=== PATIENT | female | born 1960 | race Caucasian/White ===

== ENCOUNTER → 2017-11-18 | Outpatient (CLI) | payer BC ==
[2017-11-18 11:57] VITALS: BP 116/77; PULSE 68; TEMP 97.6; BMI 23.1
--- NOTE | 2017-11-18 12:44 | P.GSHP ---
History of Present Illness H&P Date: 11/18/17 Patient without any complaints about her breast. She occasionally has pain under her right breast. No nipple discharge. No masses in her brest. she has dense breast. Past surgical history: 1. thyroid total 2. hysterectomy endometriosis 3. 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 right breast biopsy 5. bladder suspension/rectocoel 6. removal of [place] sling 7.placement of monarch sling past medical history: 1. hypothyroid 2. type two diabetes 3. GERD 4. IBS social history; smoke: none alcohol: monthly drugs: none ROS: HEENT: neative heart: negative lung: negative muskulskeletal: none psych: anxiety no depression : bladder suspension - Constitutional Constitutional: Denies chills, Denies fever - EENT Eyes: denies blurred vision, denies pain Ears: deny: decreased hearing, ear discharge, earache, tinnitus Ears, nose, mouth and throat: Denies headache, Denies sore throat - Breasts Breasts: bilateral: as per HPI - Cardiovascular Cardiovascular: Denies chest pain, Denies shortness of breath - Respiratory Respiratory: Denies cough, Denies 7 - Gastrointestinal Comment: IBS GERD - Genitourinary (Female) Comment: surgery for urinary incontinence - Musculoskeletal Musculoskeletal: Denies myalgias - Integumentary Integumentary: Reports as per HPI - Neurological Neurological: Reports as per HPI - Psychiatric Psychiatric: Denies anxiety, Denies depression - Endocrine Comment: total thyroid resection - Hematologic/Lymphatic Comment: no blood thinners, no bleeding abnormalities - Allergic/Immunologic Allergic/Immunologic: Reports seasonal allergies Past Medical History Past Medical History: Diabetes Mellitus, GERD/Reflux, Thyroid Disorder Additional Past Medical History / Comment(s): IBS History of Any Multi-Drug Resistant Organisms: None Reported Past Surgical History: Bladder Surgery, Hysterectomy Additional Past Surgical History / Comment(s): Colonoscopy, Rectocele 2014 Past Anesthesia/Blood Transfusion Reactions: Motion Sickness, Postoperative Nausea & Vomiting (PONV) Additional Past Anesthesia/Blood Transfusion Reaction / Comment(s): Anxiety Smoking Status: Former smoker Past Alcohol Use History: Occasional Past Drug Use History: None Reported - Past Family History Father Family Medical History: Deep Vein Thrombosis (DVT) Sister(s) Family Medical History: Deep Vein Thrombosis (DVT) Medications and Allergies Home Medications Medication Instructions Recorded Confirmed Type Aspirin [Adult Low Dose Aspirin EC] 81 mg PO DAILY 12/11/15 12/17/15 History Cholecalciferol [Vitamin D3] 1,000 unit PO DAILY 12/11/15 12/17/15 History Esomeprazole Magnesium [NexIUM] 20 mg PO DAILY 12/11/15 12/17/15 History Levothyroxine Sodium [Synthroid] 175 mcg PO DAILY 12/11/15 12/17/15 History Linaclotide [Linzess] 145 mcg PO DAILY 12/11/15 12/17/15 History Loratadine [Claritin] 10 mg PO DAILY 12/11/15 12/17/15 History Metoclopramide [Reglan] 10 mg PO DAILY 12/11/15 12/17/15 History Amherst-3 Fatty Acids [Amherst-3] 1,000 mg PO DAILY 12/11/15 12/17/15 History Pravastatin Sodium [Pravachol] 40 mg PO DAILY 12/11/15 12/17/15 History sitaGLIPtin [Januvia] 100 mg PO DAILY 12/11/15 12/17/15 History Allergies Allergy/AdvReac Type Severity Reaction Status Date / Time No Known Allergies Allergy Verified 12/17/15 07:55 Surgical - Exam Vital Signs Temp Pulse BP 97.6 F 68 116/77 11/18/17 11:46 11/18/17 11:46 11/18/17 11:46 - Eyes normal ocular movement, no icteric - ENT no hearing loss, no congestion - Neck no masses, trachea midline - Respiratory normal respiratory effort, clear to auscultation - Cardiovascular Heart Sounds: normal: S1, S2 - Abdomen Abdomen: soft, non tender, no guarding, no rigid, no rebound - Integumentary Examination of the entire integument was performed including the head and neck upper and lower extremities torso but generally her hands and feet patient has multiple nevi but none of which are suspicious at this time - Neurologic no disoriented, no combative - Musculoskeletal normal gait, normal posture - Psychiatric oriented to time, oriented to person, oriented to place, speech is normal, memory intact right breast: smaller than left breast dense breast tissue scars from prior biopsies no masses of concern left breast: no masses of concern dense breast bilateral axilla: no adenopathy of concern Assessment and Plan Assessment: impression: 1. fibrocystic breast 2. melanoma insitu by history 3. s/p bladder suspension 4. diabetes 5. hypothyroid Plan: 1. bilateral mammogram further recommendation to follow 2. medical management of medical conditions 3. follow up in 6 months for breast exam if mammogram is OK
--- NOTE | 2017-11-18 14:27 | MM ---
Reason for exam: additional evaluation requested from prior study. Last mammogram was performed 13 years and 2 months ago. History: Benign excisional biopsy of the right breast, September 15, 2006. Physical Findings: Nurse did not find any significant physical abnormalities on exam. MG 3D Diag Mammo W/Cad [facility] Bilateral CC and MLO view(s) were taken. Prior study comparison: October 29, 2016, mammogram, performed at [facility]. October 18, 2015, mammogram, performed at [facility]. The breast tissue is heterogeneously dense. This may lower the sensitivity of mammography. No suspicious abnormality. Post biopsy change right upper outer quadrant. These results were verbally communicated with the patient and result sheet given to the patient on 11/18/17. ASSESSMENT: Benign, BI-RAD 2 RECOMMENDATION: Routine screening mammogram of both breasts in 1 year.
== END | disposition home or self-care (01) ==
LOC: WWCWWP 11:25
PROVIDERS: ATTEND Surgery
DX: N60.09 Solitary cyst of unspecified breast (principal)
CPT/HCPCS: 77062; 77066

== ENCOUNTER → 2018-05-04 | Outpatient (CLI) | payer BC ==
--- NOTE | 2018-05-04 07:23 | MR ---
EXAMINATION TYPE: MR knee RT wo con DATE OF EXAM: 05/04/2018 COMPARISON: NONE HISTORY: Right knee pain and locking sensation for 4 to 6 months TECHNIQUE: Multiplanar, multisequence images of the knee is performed without IV contrast. FINDINGS: MEDIAL MENISCUS: Anterior horn is intact without tear. Posterior horn shows oblique increased signal extending to inferior articular surface sagittal image 7. LATERAL MENISCUS: Anterior and posterior horns are intact without tear. CRUCIATE LIGAMENTS: The anterior and posterior cruciate ligaments are intact and unremarkable. COLLATERAL LIGAMENTS: The medial collateral ligament and lateral collateral ligament complex are inta ct and unremarkable. EXTENSOR MECHANISM: Visualized quadriceps and patellar tendons are intact. EFFUSION: No significant suprapatellar joint effusion. POPLITEAL CYST: Tiny popliteal/jung cyst axial image 8. TRICOMPARTMENT SPACES: There is mild to moderate tricompartment joint space loss. No significant spur ring is seen. CARTILAGE: Some contemplation patella is present with fissuring of articular cartilage along superior aspect of the posterior patellar pole. BONE MARROW SIGNAL: There is no primary osseous lesion seen best coronal image 4 oval in shape with h eterogeneous diminished T1 and increased T2 signal measuring 12 x 9 mm with some vague area of T2 hyp erintensity surrounding lesion would still favor enchondroma or other benign etiology. Correlation wi th plain films and clinical correlation with pain at this level is advised. OTHER: No additional significant abnormality is appreciated. IMPRESSION: 1. Oblique full-thickness tear posterior horn of medial meniscus. 2. Mild to borderline moderate tricompartment degenerative changes as detailed above. 3. A 1.2 cm superior posterior patellar osseous lesion as detailed above.
== END | disposition home or self-care (01) ==
LOC: RADMRIMAIN 06:12
PROVIDERS: ATTEND Family Medicine
DX: S83.241A Other tear of medial meniscus, current injury, right knee, initial encounter (principal); M17.11 Unilateral primary osteoarthritis, right knee; M89.9 Disorder of bone, unspecified

== ENCOUNTER → 2018-05-12 | Outpatient (CLI) | payer BC ==
[2018-05-12 10:46] VITALS: BP 109/61; PULSE 78; RESP 18; TEMP 97.7; BMI 23.8
--- NOTE | 2018-05-12 11:14 | P.PN ---
Subjective Progress Note Date: 05/12/18 Principal diagnosis: The patient is a 57-year-old white female who presents for breast examination. She has bilateral discomfort in her breast which is not anything different than what is been in the past. She has some slight sensation of fullness in the upper quadrant of the right breast with no discrete dominant masses or nodules of concern. The patient's last bilateral mammogram was performed 94154 and this revealed no specific lesions of concern it was a benign BIRADS 2 and repeat. Bilateral mammogram in 1 year was recommended. The patient drinks approximately 2 cups of coffee per day. Patient does not drink pop. The patient does not smoke nor is she exposed to secondhand smoke. She eats minimal amounts of chocolate. Family history: 1.none Hormonal History: menarche: 14 : 1, first at 27, breast fed: none menopause: 52 BCP: 6 months hormones: none Past surgical history: 1. Total thyroidectomy 2. Hysterectomy for endometriosis 3. Multiple skin lesions removed for atypia, melanoma in situ, and 2 basal cell cancers, 4. Right breast biopsy 6. Bladder suspension/rectocele repair 7. Removal of [place] sling Past medical history: 1. Hypothyroid 2. Type 2 diabetes 3. GERD 4. Irritable bowel syndrome Social History: smoke; none alcohol: monthly drugs: none Objective - Vital Signs Vital signs: Vital Signs Temp 97.7 F 05/12/18 10:42 Pulse 78 05/12/18 10:42 Resp 18 05/12/18 10:42 BP 109/61 05/12/18 10:42 Pulse Ox Intake & Output 05/11/18 05/12/18 05/12/18 18:59 06:59 18:59 Weight 68.946 kg - Constitutional General appearance: Present: average body habitus - EENT Eyes: Present: EOMI ENT: Present: hearing grossly normal - Neck Details: status post total thyroid resection Neck: Present: normal ROM - Respiratory Respiratory: bilateral: CTA - Cardiovascular Rhythm: regular Heart sounds: normal: S1, S2 - Gastrointestinal General gastrointestinal: Present: soft - Integumentary Integumentary Comment(s): skin: Examination of the entire integument including the head and neck, torso, extremities, buttock genital areas and the hands and feet do not reveal any lesions of concern for which resection is recommended she does have multiple scars from prior skin lesions have been removed these are well-healed - Musculoskeletal Musculoskeletal: Present: gait normal - Psychiatric Psychiatric: Present: A&O x's 3, appropriate affect, intact judgment & insight - Additional findings Additional findings: Breast examination: Right breast: Well-healed scar from prior biopsies, mild increased density upper outer quadrant area, believed to be fibrocystic breast changes and related to scar from prior biopsies, no dominant masses or nodules of concern a multi-positional exam Right axilla: No adenopathy of concern Left breast: Multiple positional exam noted on a mass or nodules of concern Left axilla: No adenopathy of concern Assessment and Plan Assessment: Impression: 1. Fibrocystic breast changes 2. Prior history of skin lesions of concern including melanoma in situ, and basal cell carcinomas 3. GERD 4. Type 2 diabetes 5. Irritable bowel syndrome 6. Hypothyroidism Plan: 1. Repeat bilateral breast exam and mammogram in 6 months time 2. Patient will let us know if she sees any skin lesions which have changed 3. Medical management of medical conditions Cc: Dr. Murphy
== END ==
LOC: WWCWWP 09:58
PROVIDERS: ATTEND Surgery
DX: Z53.9 Procedure and treatment not carried out, unspecified reason (principal)

== ENCOUNTER → 2018-10-27 | Outpatient (CLI) | payer BC ==
--- NOTE | 2018-10-27 10:28 | US ---
EXAMINATION TYPE: US abdomen complete DATE OF EXAM: 10/27/2018 COMPARISON: NONE CLINICAL HISTORY: 58-year-old female R10.9 Abdominal pain. TECHNIQUE: Multiple sonographic images of the abdomen are obtained. FINDINGS: EXAM MEASUREMENTS: Liver Length: 13.1 cm Gallbladder Wall: 0.2 cm CBD: 0.21 cm Spleen: 10.8 cm Right Kidney: 11.6 x 4.1 x 5.3 cm Left Kidney: 11.6 x 3.8 x 4.9 cm Pancreas: wnl Liver: wnl Gallbladder: wnl Evidence for sonographic Weathers's sign: No CBD: wnl Spleen: wnl Right Kidney: wnl Left Kidney: wnl Upper IVC: wnl Abd Aorta: bifurcation obscured by bowel gas, otherwise wnl IMPRESSION: Unremarkable sonographic examination of the abdomen.
== END | disposition home or self-care (01) ==
LOC: RADUSWWP 07:13
PROVIDERS: ATTEND Family Medicine
DX: R10.9 Unspecified abdominal pain (principal)
CPT/HCPCS: 76700

== ENCOUNTER → 2018-11-21 | Outpatient (CLI) | payer BC ==
--- NOTE | 2018-11-23 09:27 | MM ---
Reason for exam: screening (asymptomatic). Last mammogram was performed 1 year ago. History: Patient has history of other cancer at age 56. Benign excisional biopsy of the right breast, September 15, 2006. Physical Findings: A clinical breast exam by your physician is recommended on an annual basis and results should be correlated with mammographic findings. MG 3D Screening Mammo W/Cad Bilateral CC and MLO view(s) were taken. Prior study comparison: November 18, 2017, bilateral MG 3d diag mammo w/cad [facility]. October 29, 2016, mammogram, performed at [facility]. The breast tissue is heterogeneously dense. This may lower the sensitivity of mammography. Finding #1: There is a 7 mm equal density (isodense) mass in the subareolar position of the right breast. Finding #2: There are typically benign calcifications in the left breast. ASSESSMENT: Incomplete: need additional imaging evaluation, BI-RAD 0 RECOMMENDATION: Special view mammogram and ultrasound of the right breast. [facility] will attempt to contact patient to return for ultrasound.
== END | disposition home or self-care (01) ==
LOC: RADMAMWWP 09:02
PROVIDERS: ATTEND Surgery
DX: Z12.31 Encounter for screening mammogram for malignant neoplasm of breast (principal)
CPT/HCPCS: 77063; 77067

== ENCOUNTER → 2018-11-25 | Outpatient (CLI) | payer BC ==
[2018-11-25 11:48] VITALS: BP 117/83; PULSE 66; RESP 18; TEMP 98.4; BMI 23.8
--- NOTE | 2018-11-25 12:17 | P.PN ---
Subjective Progress Note Date: 11/25/18 Principal diagnosis: fibrocystic breast Mohan is a 58-year-old white female who presents with a complaint of fullness in her breast. The right breast although smaller than the left feels full or and is more tender. Secondary to the denseness of the breast and heaviness of the breast she feels she must wear an underwire bra which cuts into the breast and causes more discomfort. She does not have any specific lumps or masses in her breast. She has had open biopsy of the right breast twice in the past. The patient had a recent mammogram performed at [facility]. This showed the breast to be heterogeneously dense. There was a 7 mm equal density mass in the subareolar position of the right breast. There are benign calcifications in the left breast. Secondary to the findings in the right breast was recommended she undergo a right breast diagnostic mammogram and ultrasound. The patient is complaining of some increased night sweats which may correlate with fluid retention and increased fullness in her breast. She does follow with a MANAGER FI[facility] physician at [facility], Dr. Sauer Family history: Paternal aunt: Breast cancer at 75 Maternal cousin: Breast cancer at 40 Hormonal History: menarche: 14 breast fed: no, first child born at 27 BCP: 1 year hormones: none Past medical history: 1. Hypothyroid 2. Type 2 diabetes 3. GERD 4. Irritable bowel syndrome Past surgical history: 1. Total thyroidectomy 2. Hysterectomy 3. 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 Right breast biopsy 5. Bladder suspension/rectocele. 6. Removal of [place] sling 7. Placement of monarch sling Social history: Smoke: Negative Alcohol: Occasional Drugs: Negative Review of systems: HEENT: Negative Lungs: Negative Cardiac: Negative GI: Irritable bowel syndrome : Prior bladder suspension Musculoskeletal: Arthritis in knees Integument: As above Psychiatric: Anxiety Objective - Constitutional General appearance: Present: average body habitus - EENT Eyes: Present: EOMI ENT: Present: hearing grossly normal - Neck Neck: Present: normal ROM - Respiratory Respiratory: bilateral: CTA - Cardiovascular Rhythm: regular Heart sounds: normal: S1, S2 - Gastrointestinal General gastrointestinal: Present: soft - Integumentary Integumentary Comment(s): Examination of the entire integument was performed: Ii would recommend the following be excised or followed very closely 1. 2 nevi of some variegated color on the left forearm 2. 2 nevi which I would recommend be excised in the right anterior thigh Integumentary: Present: normal turgor - Musculoskeletal Musculoskeletal: Present: gait normal - Psychiatric Psychiatric: Present: A&O x's 3, appropriate affect, intact judgment & insight - Additional findings Additional findings: Breast Exam: right breast: Multi-positional exam dense, flow breast, fibrocystic changes, no discrete lumps or masses of concern, well-healed scar from prior surgery Right axilla: No adenopathy of concern left breast: Multiple positional exam fibrocystic changes no dominant masses or nodules of concern Left axilla: No adenopathy of concern The patient is concerned that her breasts are very heavy, she is a 36C on the left however on the right is a 35 C Secondary to the heaviness of her breasts she has indentation in her shoulders from her bra, she is also experiencing back pain Assessment and Plan Assessment: Impression: 1. Abnormal mammogram right breast 2. Fibrocystic breast disease 3. Fluid retention resulting in the heavy breast/dense breast tissue 4. Family history of breast cancer 5. Hypothyroid 6. Irritable bowel syndrome 7. GERD 8. Type 2 diabetes 9. Skin lesions as noted physical examination Plan: 1. Right breast diagnostic mammogram and ultrasound 2. Follow-up after right breast diagnostic mammogram and ultrasound 3. Excision of skin lesions as per dermatology 4. Medical follow-up with medical conditions 5. Concern that the patient is having hot flashes and may be having some hormonal fluctuations, she is going to follow with MANAGER FIRE at [facility] CC: Dr. Ricks
== END | disposition home or self-care (01) ==
LOC: WWCWWP 11:38
PROVIDERS: ATTEND Surgery
DX: Z53.9 Procedure and treatment not carried out, unspecified reason (principal)

== ENCOUNTER → 2018-12-01 | Outpatient (CLI) | payer BC ==
--- NOTE | 2018-12-02 09:07 | USB ---
Reason for exam: additional evaluation requested from abnormal screening. History: Patient has history of other cancer at age 56. Benign excisional biopsy of the right breast, September 15, 2006. US Breast Workup Limited RT Right limited breast ultrasound including focal area of concern, retroareolar and axilla demonstrates no cystic or solid lesion seen. These results were verbally communicated with the patient and result sheet given to the patient on 12/01/18. ASSESSMENT: Negative, BI-RAD 1 RECOMMENDATION: Follow-up diagnostic mammogram of the right breast in 6 months.
--- NOTE | 2018-12-02 09:07 | MM ---
Reason for exam: additional evaluation requested from abnormal screening. Last mammogram was performed less than 1 month ago. History: Patient has history of other cancer at age 56. Benign excisional biopsy of the right breast, September 15, 2006. Physical Findings: Nurse did not find any significant physical abnormalities on exam. MG 3D Work Up W/Cad RT Spot compression CC, spot compression MLO, and LM view(s) were taken of the right breast. Prior study comparison: November 21, 2018, bilateral MG 3d screening mammo w/cad. The breast tissue is heterogeneously dense. This may lower the sensitivity of mammography. There is no discrete abnormality subareolar. These results were verbally communicated with the patient and result sheet given to the patient on 12/01/18. ASSESSMENT: Probably benign, BI-RAD 3 RECOMMENDATION: Follow-up diagnostic mammogram of the right breast in 6 months.
== END | disposition home or self-care (01) ==
LOC: RADMAMWWP 13:41
PROVIDERS: ATTEND Surgery
DX: R92.8 Other abnormal and inconclusive findings on diagnostic imaging of breast (principal)
CPT/HCPCS: 77061; 77065

== ENCOUNTER → 2018-12-06 | Outpatient (CLI) | payer BC ==
[2018-12-06 12:15] VITALS: BP 121/76; PULSE 61; RESP 20; TEMP 98.1; BMI 24.3
--- NOTE | 2018-12-06 12:21 | P.PN ---
Progress Note - Text Progress Note Date: 12/06/18 Mohan was seen today for results of her right breast diagnostic mammogram and ultrasound. These films were reviewed with the radiologist. No lesion was seen on ultrasound. No persistent lesion was seen radiographically and mammogram. I have discussed this with the patient. She is going to have repeat right breast mammogram in 6 months time with physician exam at that time. The patient does have concerns about having this and fullness in her breast and is requesting an appointment with plastic surgery regarding a possible reduction mammoplasty. We've given her Dr. Gorman's name and we'll schedule this for her. The patient will follow up in 6 months time. Impression: 1. Fibrocystic breast changes 2. Dense breast which are heavy. Plan: 1. Repeat right breast mammogram in 6 months with physician exam at that time 2. Appointment with plastic surgery
== END ==
LOC: WWCWWP 11:59
PROVIDERS: ATTEND Surgery
DX: Z53.9 Procedure and treatment not carried out, unspecified reason (principal)

== ENCOUNTER → 2019-06-05 | Outpatient (CLI) | payer BC ==
--- NOTE | 2019-06-05 14:29 | MM ---
Reason for exam: follow-up at short interval from prior study. Last mammogram was performed 6 months ago. History: Patient is postmenopausal and has history of other cancer at age 56. Family history of breast cancer in maternal cousin at age 40. Benign excisional biopsy of the right breast, September 15, 2006. Physical Findings: Nurse did not find any significant physical abnormalities on exam. MG 3D Diag Mammo W/Cad RT CC and MLO view(s) were taken of the right breast. Prior study comparison: December 01, 2018, right breast MG 3d work up w/cad RT. November 21, 2018, bilateral MG 3d screening mammo w/cad. There are scattered fibroglandular densities. These results were verbally communicated with the patient and result sheet given to the patient on 06/05/19. ASSESSMENT: Benign, BI-RAD 2 RECOMMENDATION: Return to routine screening mammogram schedule for both breasts.
== END | disposition home or self-care (01) ==
LOC: RADMAMWWP 13:03
PROVIDERS: ATTEND Surgery
DX: R92.8 Other abnormal and inconclusive findings on diagnostic imaging of breast (principal)
CPT/HCPCS: 77061; 77065

== ENCOUNTER → 2019-06-23 | Outpatient (CLI) | payer BC ==
[2019-06-23 13:59] VITALS: BP 135/82; PULSE 58; RESP 18; TEMP 97.9
--- NOTE | 2019-06-23 14:02 | P.PN ---
Subjective Progress Note Date: 06/23/19 Principal diagnosis: fibrocystic breast changes Mohan is a 59-year-old white female comes for repeat breast evaluation. She had a bilateral mammogram 11/21/2018 which revealed a 7 mm equal density mass in the subareolar position of the right breast. Additional studies of the right breast including an ultrasound was performed at that time this is felt to be negative the follow-up diagnostic mammogram of the right breast in 6 months time was recommended. The patient has had a follow-up diagnostic mammogram on . This was felt to be scattered fibroglandular densities. Benign BIRADS 2 and return to normal screening for both breast which will be in November 2019. The patient does not feel anything of concern in her breasts. She is not complaining of any nipple discharge or changes. She is not complaining of any pain in her breast. The patient is following with her security alarm technician for her skin lesions. Family history: Paternal aunt: Breast cancer at 75 Maternal cousin: Breast cancer at 40 Hormonal History: menarche: 14 breast fed: no, first child born at 27 BCP: 1 year hormones: none Past medical history: 1. Hypothyroid 2. Type 2 diabetes 3. GERD 4. Irritable bowel syndrome Past surgical history: 1. Total thyroidectomy 2. Hysterectomy 3. 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 Right breast biopsy 5. Bladder suspension/rectocele. 6. Removal of [place] sling 7. Placement of monarch sling Social history: Smoke: Negative Alcohol: Occasional Drugs: Negative Review of systems: HEENT: Negative Lungs: Negative Cardiac: Negative GI: Irritable bowel syndrome : Prior bladder suspension Musculoskeletal: Arthritis in knees Integument: As above Psychiatric: Anxiety Objective - Constitutional General appearance: Present: average body habitus - EENT Eyes: Present: EOMI ENT: Present: hearing grossly normal - Neck Neck: Present: normal ROM - Respiratory Respiratory: bilateral: CTA - Cardiovascular Rhythm: regular Heart sounds: normal: S1, S2 - Gastrointestinal General gastrointestinal: Present: normal bowel sounds, soft - Integumentary Integumentary: Present: normal turgor - Musculoskeletal Musculoskeletal: Present: gait normal - Psychiatric Psychiatric: Present: A&O x's 3, appropriate affect, intact judgment & insight - Additional findings Additional findings: breast exam: right breast: multipositional exam no dominate masses or nodules of concern, scars well healed right axilla: no adenopathy of concern left breast: multipositional exam no dominate masses or nodules of concern, left axilla: no adenopathy of concern Assessment and Plan Assessment: Impression: 1. bilateral fibrocystic disease 2. no masses in breast 3. right breast BIRAD 2, 12-2-19 Plan: 1. bilateral mammogram November 2018 2. follow up after mammogram 3. continue to follow with dermatology CC: DR. Ricks encounter 20 minutes, > 50% of time in planning and counselling Time with Patient: Less than 30
== END | disposition home or self-care (01) ==
LOC: WWCWWP 12:26
PROVIDERS: ATTEND Surgery
DX: Z53.9 Procedure and treatment not carried out, unspecified reason (principal)

== ENCOUNTER → 2020-01-02 | Outpatient (CLI) | payer BC ==
--- NOTE | 2020-01-03 09:58 | MM ---
Reason for exam: screening (asymptomatic). Last mammogram was performed 7 months ago. History: Patient is postmenopausal and has history of other cancer at age 56. Family history of breast cancer in maternal cousin at age 40. Benign excisional biopsy of the right breast, September 15, 2006. Physical Findings: A clinical breast exam by your physician is recommended on an annual basis and results should be correlated with mammographic findings. MG 3D Screening Mammo W/Cad Bilateral CC and MLO view(s) were taken. Prior study comparison: June 05, 2019, right breast MG 3d diag mammo w/cad RT. December 01, 2018, right breast MG 3d work up w/cad RT. There are scattered fibroglandular densities. There is no discrete abnormality. No significant changes when compared with prior studies. ASSESSMENT: Negative, BI-RAD 1 RECOMMENDATION: Routine screening mammogram of both breasts in 1 year.
== END | disposition home or self-care (01) ==
LOC: RADMAMWWP 08:03
PROVIDERS: ATTEND Surgery
DX: Z12.31 Encounter for screening mammogram for malignant neoplasm of breast (principal)
CPT/HCPCS: 77063; 77067

== ENCOUNTER → 2020-03-21 | Outpatient (CLI) | payer BC ==
[2020-03-21 09:53] VITALS: BP 119/69; PULSE 61; RESP 18; TEMP 98.7
--- NOTE | 2020-03-21 10:22 | P.PN ---
Subjective Progress Note Date: 03/21/20 Principal diagnosis: fibrocystic breast changes Mohan is a 59-year-old white female comes for repeat breast evaluation. She had a bilateral mammogram 11/21/2018 which revealed a 7 mm equal density mass in the subareolar position of the right breast. Additional studies of the right breast including an ultrasound was performed at that time this is felt to be negative the follow-up diagnostic mammogram of the right breast in 6 months time was recommended. The patient has had a follow-up diagnostic mammogram on . This was felt to be scattered fibroglandular densities. Benign BIRADS 2 and return to normal screening for both breast which will be in November 2019. Her last mammogram was done on 01-02-20 and was benign BIRADS 1. The patient does not feel anything of concern in her breasts. She is not complaining of any nipple discharge or changes. She is not complaining of any pain in her breast. The patient is following with her engineering operator for her skin lesions. Family history: Paternal aunt: Breast cancer at 75 Maternal cousin: Breast cancer at 40 Hormonal History: menarche: 14 breast fed: no, first child born at 27 BCP: 1 year hormones: none Past medical history: 1. Hypothyroid 2. Type 2 diabetes 3. GERD 4. Irritable bowel syndrome Past surgical history: 1. Total thyroidectomy 2. Hysterectomy 3. 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 Right breast biopsy 5. Bladder suspension/rectocele. 6. Removal of Monarc sling 7. Placement of monarch sling Social history: Smoke: Negative Alcohol: Occasional Drugs: Negative Review of systems: HEENT: Negative Lungs: Negative Cardiac: Negative GI: Irritable bowel syndrome : Prior bladder suspension Musculoskeletal: Arthritis in knees Integument: As above Psychiatric: Anxiety hematologic: allergies: codeine Objective - Vital Signs Vital signs: Vital Signs Temp 98.7 F 03/21/20 09:50 Pulse 61 03/21/20 09:50 Resp 18 03/21/20 09:50 BP 119/69 03/21/20 09:50 Pulse Ox 99 03/21/20 09:50 Intake & Output 03/20/20 03/21/20 03/21/20 18:59 06:59 18:59 Weight 71.668 kg - Exam BMI 24.7 - Constitutional General appearance: Present: average body habitus - EENT Eyes: Present: EOMI ENT: Present: hearing grossly normal - Neck Neck: Present: normal ROM - Respiratory Respiratory: bilateral: CTA - Cardiovascular Rhythm: regular Heart sounds: normal: S1, S2 - Gastrointestinal General gastrointestinal: Present: normal bowel sounds, soft - Integumentary Integumentary: Present: normal turgor - Musculoskeletal Musculoskeletal: Present: gait normal - Psychiatric Psychiatric: Present: A&O x's 3, appropriate affect, intact judgment & insight - Additional findings Additional findings: Breast Exam: BRA: left breast 36C, right breast asymmetric smaller Inspection: Right breast grade 1 ptosis, left breast grade 2/3 ptosis Palpation: Right breast scars from prior surgery, fibrocystic changes, no dominant masses or nodules of concern Right axilla: No adenopathy of concern Left breast: Multi-positional exam no dominant masses or nodules of concern, fibrocystic changes Left axilla: No adenopathy of concern Complaining of shoulder notching secondary to heaviness of left breast she also complains of back pain Bilateral mammogram reviewed/95903 negative BIRADS 1 Assessment and Plan Assessment: Impression: 1. Asymmetry of breast/right breast smaller than left breast making it difficult to obtain close that fit well, shoulder notching, back pain 2. Fibrocystic breast changes 3. Hypothyroidism 4. Type 2 diabetes 5. GERD 6. Irritable bowel syndrome Plan: 1. Bilateral mammogram in 1 year 2. Appointment with plastic surgery for left breast reduction 3. Follow-up here in 1 year for repeat breast examination follow sooner if any questions or concerns CC: DR. Ricks encounter 20 minutes, > 50% of time in planning and counselling
== END | disposition home or self-care (01) ==
LOC: WWCWWP 09:43
PROVIDERS: ATTEND Surgery
DX: Z53.9 Procedure and treatment not carried out, unspecified reason (principal)

== ENCOUNTER → 2020-06-12 | Outpatient (CLI) | payer BC ==
[~2020-06-12] MED LIST: SODIUM CHLORIDE 0.9% 500 ML 500 ML in EMPTY BAG 1 BAG IV PRN; ZOLEDRONIC ACID 5 MG in SODIUM CHLORIDE 0.9% 100 ML IV NR
[2020-06-12 08:46] VITALS: BP 114/76; PULSE 62; RESP 16; TEMP 97.6
== END | disposition home or self-care (01) ==
LOC: PROCWHC3 07:55
PROVIDERS: ATTEND Internal Medicine
DX: M81.0 Age-related osteoporosis without current pathological fracture (principal)
CPT/HCPCS: 96365; J3489

== ENCOUNTER → 2020-07-10 | Day surgery (SDC) | payer BC ==
[2020-07-09 09:51] VITALS: BMI 25.0
[~2020-07-10] MED LIST changes: +LACTATED RINGERS 1,000 ML IV SCH; +LIDOCAINE 1% (10MG/ML) FOR IV START INTRADERMA PRN; +LIDOCAINE 1% INJ 10MG/ML (20 ML MDV) ONE; +ONDANSETRON 4 MG/2 ML VIAL IVP ONE; +ONDANSETRON 4 MG/2 ML VIAL ONE; +PROPOFOL 10 MG/ML 20 ML VIAL IV ONE; -SODIUM CHLORIDE 0.9% 500 ML 500 ML in EMPTY BAG 1 BAG IV PRN; -ZOLEDRONIC ACID 5 MG in SODIUM CHLORIDE 0.9% 100 ML IV NR
[2020-07-10 11:24] VITALS: TEMP 98.4
[2020-07-10 11:38] LABS: Glucose,Whole Blood 107 mg/dL (75-99)
--- NOTE | 2020-07-10 12:40 | P.PCN ---
Date of Procedure: 07/10/20 Procedure(s) Performed: Brief history: Patient is a pleasant 60-year-old white female scheduled for an elective upper endoscopy as well as colonoscopy as a part of evaluation of GERD and screening for colorectal neoplasia. Procedure performed: Esophagogastroduodenoscopy with biopsy Colonoscopy Preoperative diagnosis: GERD Screening for colon cancer Anesthesia: MAC Procedure: After informed consent was obtained from the patient was brought into the endoscopy unit and IV sedation was administered by anesthesia under continuous monitoring. Initially upper endoscopy was done. The Olympus GF 160 video endoscope was inserted inserted into the mouth and esophagus intubated without any difficulty and was gradually advanced into the stomach and duodenum and carefully examined. The bulb and second part of the duodenum appeared normal. The scope was then withdrawn into the stomach adequately insufflated with air and upon careful examination the antrum had mild gastritis and biopsies were done from this area. The body, cardia and fundus appeared normal. The scope was then withdrawn into the esophagus. The GE junction was located at 40 cm to the incisors. Small sliding type hiatal hernia noted. It appeared regular with no erythema erosions or ulcerations. Rest of the esophagus appeared normal. Patient tolerated the procedure well. At this time the patient continued to remain sedation. Initial digital rectal examination was normal. Olympus CF 160 video colonoscope was then inserted into the rectum and gradually advanced to the cecum without any difficulty. Careful examination was performed as the scope was gradually being withdrawn. The prep was excellent. The cecum, ascending colon, transverse colon, descending colon, sigmoid colon and rectum appeared normal. Retroflexion was performed in the rectum and no lesions were noted. Patient tolerated the procedure well. Impression: 1. Upper endoscopy revealed mild antral gastritis and small hiatal hernia 2. Colonoscopy was essentially within normal limits with no evidence of colitis or colorectal neoplasia Recommendations: Findings of this examination were discussed with the patient as well as a family. She will follow with the biopsy results. She was advised to have a repeat screening colonoscopy in 10 years.
[2020-07-10 13:02] VITALS: BP 122/66; PULSE 56; RESP 16
== END ==
LOC: ORWHC2ENDO 10:49
PROVIDERS: ATTEND Internal Medicine Gastroenterology
DX: Z12.11 Encounter for screening for malignant neoplasm of colon (principal); K29.70 Gastritis, unspecified, without bleeding; K44.9 Diaphragmatic hernia without obstruction or gangrene; K31.9 Disease of stomach and duodenum, unspecified; K21.9 Gastro-esophageal reflux disease without esophagitis; E11.9 Type 2 diabetes mellitus without complications; E07.9 Disorder of thyroid, unspecified; F41.9 Anxiety disorder, unspecified; F32.9 Major depressive disorder, single episode, unspecified; K58.9 Irritable bowel syndrome, unspecified; Z79.84 Long term (current) use of oral hypoglycemic drugs; Z79.899 Other long term (current) drug therapy; Z79.890 Hormone replacement therapy; Z88.5 Allergy status to narcotic agent; Z90.710 Acquired absence of both cervix and uterus; Z91.89 Other specified personal risk factors, not elsewhere classified; Z87.898 Personal history of other specified conditions
CPT/HCPCS: 88305; 43239; J2405; J2001; J2704; G0121

== ENCOUNTER → 2020-09-02 | Outpatient (CLI) | payer BC ==
[2020-09-02 18:29] LABS: T4, Free (Free Thyroxine) 0.8 ng/dL (0.80-1.80)
== END | disposition home or self-care (01) ==
LOC: LABWHC1 09:47
PROVIDERS: ATTEND Internal Medicine
DX: E89.0 Postprocedural hypothyroidism (principal)
CPT/HCPCS: 36415; 84439; 84443

== ENCOUNTER → 2021-01-08 | Outpatient (CLI) | payer BC | END | disposition home or self-care (01) ==

== ENCOUNTER → 2021-01-10 | Outpatient (CLI) | payer BC ==
[2021-01-10 10:58] VITALS: BP 114/73; PULSE 89; RESP 18; TEMP 98.1
--- NOTE | 2021-01-10 11:25 | P.PN ---
Subjective Progress Note Date: 01/10/21 Principal diagnosis: breast pain fibrocystic breast changes Mohan is a 60-year-old white female comes for repeat breast evaluation. She had a bilateral mammogram 11/21/2018 which revealed a 7 mm equal density mass in the subareolar position of the right breast. Additional studies of the right breast including an ultrasound was performed at that time this is felt to be negative the follow-up diagnostic mammogram of the right breast in 6 months time was recommended. The patient has had a follow-up diagnostic mammogram on . This was felt to be scattered fibroglandular densities. Benign BIRADS 2 and return to normal screening for both breast which will be in November 2019. She had a mammogram was done on 01-02-20 and was benign BIRADS 1. The patient's most recent mammogram was on 7720 this was negative and routine screening was recommended. The patient has asymmetry of the breasts secondary to prior procedures. The left side is larger than the right. In the last year she was seen by plastic surgery to consider a reduction mammoplasty on the left however he she was told that insurance would not cover this. At this time she is complaining of bilateral breast discomfort. She wears a size 36D and is complaining of back pain and shoulder notching. Additionally she has bilateral breast pain throughout the breast. She believes this is related to hormone changes. She has not taken any hormones. She is not complaining of any nipple discharge or skin changes. She cannot feel any specific lumps or masses in her breast. Caffeine: 2 cups per day Nicotine: Negative Chocolate: Occasional Hormones: Negative The patient is following with her security system analyst for her skin lesions. Family history: Paternal aunt: Breast cancer at 75 Maternal cousin: Breast cancer at 40 Hormonal History: menarche: 14 breast fed: no, first child born at 27 BCP: 1 year hormones: none Past medical history: 1. Hypothyroid 2. Type 2 diabetes 3. GERD 4. Irritable bowel syndrome Past surgical history: 1. Total thyroidectomy 2. Hysterectomy 3. 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 Right breast biopsy 5. Bladder suspension/rectocele. 6. Removal of Monarc sling 7. Placement of monarch sling Social history: Smoke: Negative Alcohol: Occasional Drugs: Negative Review of systems: HEENT: Negative Lungs: Negative Cardiac: Negative GI: Irritable bowel syndrome : Prior bladder suspension Musculoskeletal: Arthritis in knees Integument: As above Psychiatric: Anxiety hematologic: allergies: codeine Objective - Vital Signs Vital signs: Vital Signs Temp 98.1 F 01/10/21 10:56 Pulse 89 01/10/21 10:56 Resp 18 01/10/21 10:56 BP 114/73 01/10/21 10:56 Pulse Ox 100 01/10/21 10:56 Intake & Output 01/09/21 01/10/21 01/10/21 18:59 06:59 18:59 Weight 74.843 kg - Exam BMI 25.8 - Constitutional General appearance: Present: cooperative - EENT Eyes: Present: EOMI ENT: Present: hearing grossly normal - Neck Neck: Present: normal ROM - Respiratory Respiratory: bilateral: CTA - Cardiovascular Rhythm: regular Heart sounds: normal: S1, S2 - Integumentary Integumentary: Present: normal turgor - Musculoskeletal Musculoskeletal: Present: gait normal - Psychiatric Psychiatric: Present: A&O x's 3, appropriate affect, intact judgment & insight - Additional findings Additional findings: Breast: BRA: 38D inspection: left breast larger than the right breast palpation: right breast: Multiple positional exam fibrocystic changes, no dominant masses or nodules of concern Right axilla: No adenopathy of concern Left breast: Multiple positional exam fibrocystic changes no dominant masses or nodules of concern Left axilla: No adenopathy of concern Assessment and Plan Assessment: Impression: 1. Hypothyroid 2. Type 2 diabetes 3. GERD 4. Irritable bowel syndrome 5. Bilateral fibrocystic breast changes 6. Recent bilateral mammogram no lesions of concern Plan: 1. I have given the patient a booklet regarding breast discomfort 2. Would recommend lifestyle modification avoid caffeine 3. [place] oil 4. Patient has seen plastic surgery regarding possibility of reduction of the left breast may consider seeing a different plastic surgeon 5. Bilateral mammogram in physician exam in 1 year CC: Dr. Ricks
== END ==
LOC: WWCWWP 10:46
PROVIDERS: ATTEND Surgery
DX: N60.11 Diffuse cystic mastopathy of right breast (principal); N60.12 Diffuse cystic mastopathy of left breast; E03.9 Hypothyroidism, unspecified; E11.9 Type 2 diabetes mellitus without complications; K21.9 Gastro-esophageal reflux disease without esophagitis; K58.9 Irritable bowel syndrome, unspecified

== ENCOUNTER → 2021-06-23 | Outpatient (CLI) | payer BC ==
--- NOTE | 2021-06-23 09:04 | US ---
EXAMINATION TYPE: US abdomen comp/pelvis limited DATE OF EXAM: 06/23/2021 COMPARISON: US 2018, CT 2013 CLINICAL HISTORY: R10.13 Epigastric pain R10.9 abd pain. Abdomen pain after eating x 6 weeks, bloatin g, nausea EXAM MEASUREMENTS: Liver Length: 15.0 cm Gallbladder Wall: 0.1 cm CBD: 0.3 cm Spleen: 10.6 cm Right Kidney: 11.2 x 4.2 x 5.4 cm Left Kidney: 11.9 x 4.8 x 4.8 cm Pancreas: visualized portions wnl, tail obscured by overlying midline bowel gas Liver: wnl Gallbladder: wnl CBD: wnl Spleen: wnl Right Kidney: wnl Left Kidney: wnl Upper IVC: wnl Abd Aorta: visualized portions wnl, distal portion obscured by overlying bowel gas Bladder: Not greatly distended Bilateral Jets Seen yes IMPRESSION: No new or acute findings are evident.
== END | disposition home or self-care (01) ==
LOC: RADUSWWP 07:39
PROVIDERS: ATTEND Family Medicine
DX: R10.13 Epigastric pain (principal)
CPT/HCPCS: 76700; 76857

== ENCOUNTER → 2021-08-15 | Outpatient (CLI) | payer BC ==
[~2021-08-15] MED LIST changes: -LACTATED RINGERS 1,000 ML IV SCH; -LIDOCAINE 1% (10MG/ML) FOR IV START INTRADERMA PRN; -LIDOCAINE 1% INJ 10MG/ML (20 ML MDV) ONE; -ONDANSETRON 4 MG/2 ML VIAL IVP ONE; -ONDANSETRON 4 MG/2 ML VIAL ONE; -PROPOFOL 10 MG/ML 20 ML VIAL IV ONE; +SODIUM CHLORIDE 0.9% 500 ML 500 ML in EMPTY BAG 1 BAG IV PRN; +ZOLEDRONIC ACID 5 MG in SODIUM CHLORIDE 0.9% 100 ML IV NR
[2021-08-15 11:22] VITALS: BP 116/72; PULSE 60; RESP 16; TEMP 97.9
== END ==
LOC: PROCWHC3 11:06
PROVIDERS: ATTEND Internal Medicine
DX: M89.9 Disorder of bone, unspecified (principal); Z88.5 Allergy status to narcotic agent
CPT/HCPCS: 96365; J3489

== ENCOUNTER → 2022-01-12 | Outpatient (CLI) | payer BC ==
--- NOTE | 2022-01-13 07:49 | MM ---
Reason for Exam: Screening (asymptomatic). Last screening mammogram was performed 12 month(s) ago. Patient History: Menarche at age 14. First Full-Term at age 27. Hysterectomy at age 43. Postmenopausal. Other cancer, age 56. Hormonal Contraceptives for 3 months. Bilateral Reduction. 09/15/2006, Benign Excisional Biopsy on the right side. Maternal cousin had breast cancer, age 40. Risk Values: Pamela 5 year model risk: 1.5%. NCI Lifetime model risk: 8.3%. Prior Study Comparison: 06/05/2019 Right Diagnostic Mammogram, [facility]. 01/02/2020 Bilateral Screening Mammogram, [facility]. 01/08/2021 Bilateral Screening Mammogram, [facility]. Tissue Density: The breast tissue is heterogeneously dense. This may lower the sensitivity of mammography. Findings: Analyzed By CAD. There is no suspicious group of microcalcifications or new suspicious mass in either breast. Overall Assessment: Negative, BI-RAD 1 Management: Screening Mammogram of both breasts in 1 year. A clinical breast exam by your physician is recommended on an annual basis and results should be correlated with mammographic findings. Electronically signed and approved by: Kingston Marcos M.D. Radiologis
== END | disposition home or self-care (01) ==
LOC: RADMAMWWP 08:01
PROVIDERS: ATTEND Surgery
DX: Z12.31 Encounter for screening mammogram for malignant neoplasm of breast (principal); Z78.0 Asymptomatic menopausal state
CPT/HCPCS: 77063; 77067

== ENCOUNTER → 2022-01-16 | Outpatient (CLI) | payer BC ==
[2022-01-16 11:53] VITALS: BP 124/80; PULSE 69; RESP 16; TEMP 98
--- NOTE | 2022-01-16 12:08 | P.PN ---
Subjective Progress Note Date: 01/16/22 Principal diagnosis: fibrocystic breast changes breast pain fibrocystic breast changes Mohan is a 60-year-old white female comes for repeat breast evaluation. She had a bilateral mammogram 11/21/2018 which revealed a 7 mm equal density mass in the subareolar position of the right breast. Additional studies of the right breast including an ultrasound was performed at that time this is felt to be negative the follow-up diagnostic mammogram of the right breast in 6 months time was recommended. The patient has had a follow-up diagnostic mammogram on . This was felt to be scattered fibroglandular densities. Benign BIRADS 2 and return to normal screening for both breast which will be in November 2019. She had a mammogram was done on 01-02-20 and was benign BIRADS 1. The patient's most recent mammogram was on 7720 this was negative and routine screening was recommended. The patient has asymmetry of the breasts secondary to prior procedures. The left side is larger than the right. In the last year she was seen by plastic surgery to consider a reduction mammoplasty on the left however he she was told that insurance would not cover this. At this time she is complaining of bilateral breast discomfort. She wears a size 36D and is complaining of back pain and shoulder notching. Additionally she has bilateral breast pain throughout the breast. She believes this is related to hormone changes. She has not taken any hormones. She is not complaining of any nipple discharge or skin changes. She cannot feel any specific lumps or masses in her breast. 01-16-22 The patient on underwent a bilateral breast reduction secondary to asymmetry and macromastia. She had been suffering from back pain and bilateral shoulder notching. Since that time she is not complaining of any new lumps masses or nodules of concern in either breast. She had a bilateral mammogram performed on which was felt to be benign BIRADS 1. She now is a 38 mL. She is down from a double D on the left and a D on the right. Her back pain has improved and the shoulder notching is improved. Caffeine: 2 cups per day Nicotine: Negative Chocolate: Occasional Hormones: Negative The patient is following with her sheet metal engineer for her skin lesions. Family history: Paternal aunt: Breast cancer at 75 Maternal cousin: Breast cancer at 40 Hormonal History: menarche: 14 breast fed: no, first child born at 27 BCP: 1 year hormones: none Past medical history: 1. Hypothyroid 2. Type 2 diabetes 3. GERD 4. Irritable bowel syndrome 5. rectal pain following at [facility] Past surgical history: 1. Total thyroidectomy 2. Hysterectomy 3. 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 Right breast biopsy 5. Bladder suspension/rectocele. 6. Removal of Monarc sling 7. Placement of monarch sling 8. bilateral breast reductions Social history: Smoke: Negative Alcohol: Occasional Drugs: Negative Review of systems: HEENT: Negative Lungs: Negative Cardiac: Negative GI: Irritable bowel syndrome : Prior bladder suspension Musculoskeletal: Arthritis in knees Integument: As above Psychiatric: Anxiety hematologic: allergies: codeine Objective - Vital Signs Vital signs: Vital Signs Temp 98.0 F 01/16/22 11:50 Pulse 69 01/16/22 11:50 Resp 16 01/16/22 11:50 BP 124/80 01/16/22 11:50 Pulse Ox 96 01/16/22 11:50 FiO2 Intake & Output 01/15/22 01/16/22 01/16/22 18:59 06:59 18:59 Weight 77.111 kg - Exam BMI: 26.6 - Constitutional General appearance: Present: cooperative - EENT Eyes: Present: EOMI ENT: Present: hearing grossly normal - Neck Neck: Present: normal ROM - Respiratory Respiratory: bilateral: CTA - Cardiovascular Rhythm: regular Heart sounds: normal: S1, S2 - Integumentary Integumentary: Present: normal turgor - Psychiatric Psychiatric: Present: A&O x's 3, appropriate affect, intact judgment & insight - Additional findings Additional findings: Breast Exam: BRA: 36C Inspection: Well-healed scars from bilateral reduction mammoplasty, grade 1 ptosis Palpation: Right breast: Multiple positional exam fibrocystic changes no dominant masses or nodules of concern Right axilla: No adenopathy of concern Left breast: Multiple positional exam fibrocystic changes no dominant masses or nodules of concern Left axilla: No adenopathy of concern Assessment and Plan Assessment: Impression: 1. Hypothyroid 2. Type 2 diabetes 3. GERD 4. Irritable bowel syndrome 5. rectal pain following at [facility] 6. Fibrocystic breast changes, nothing at this time which would warn interventional biopsy Plan: Bilateral mammogram in 1 year with physician exam at that time Patient is complaining of rectal pain and is going to follow up with a colorectal surgeon CC: Dr. Ricks
== END ==
LOC: WWCWWP 11:36
PROVIDERS: ATTEND Surgery
DX: N60.12 Diffuse cystic mastopathy of left breast (principal); N60.11 Diffuse cystic mastopathy of right breast; E03.9 Hypothyroidism, unspecified; E11.9 Type 2 diabetes mellitus without complications; K21.9 Gastro-esophageal reflux disease without esophagitis; K58.9 Irritable bowel syndrome, unspecified; K62.89 Other specified diseases of anus and rectum; Z88.5 Allergy status to narcotic agent

== ENCOUNTER → 2022-05-06 | Outpatient (CLI) | payer BC ==
--- NOTE | 2022-05-06 11:58 | CA ---
Exercise Stress Test Report Name: Mohan Allen Exam Date: 05/06/2022 10:04 Exam Location: [place] Stress Ht (in): 67 Wt (lb): 168 BSA: 1.88 Ordering Phys: Sage Ricks MD Referring Phys: Jil Loera Technologist: Danie Florian Age: 61 Gender: F : 1960 Procedure CPT: Indications: Z82.49 FAM HX ISCHEMIC HEART DISEASE ICD-10 Codes: Patient History: FAMILY HISTORY OF HEART DIAEASE Medications: Meds past 24 hrs: Pretest Chest Pain: STRESS TEST Juvencio Protocol Exercise Duration (min:sec): 10:[address] Depressions (mm): Angina Score: Perez Score: Resting HR (bpm): 56 Peak HR (bpm): 145 Resting BP (mmHg): 115 / 77 Peak BP (mmHg): 199 / 95 MPHR: 161 Target HR: 137 % MPHR: 90 METS: 12.1 Total Dose: Peak Dose: Atropine: Double Product: 57449 BP Response: Stress Termination: Reached target heart rate Stress Symptoms: No chest pain or symptoms Stress Summary: ECG ANALYSIS Resting ECG: Normal sinus rhythm normal axis normal intervals Stress ECG: Good exercise tolerance no ST segment depression CONCLUSIONS Good exercise tolerance Negative stress test by EKG criteria Dr. Thom Mcdonald MD (Electronically Signed) Final Date: 06 May 2022 11:57
--- NOTE | 2022-05-06 12:32 | NM ---
EXAMINATION TYPE: NM stress cardiolite complete DATE OF EXAM: 05/06/2022 COMPARISON: NONE HISTORY: Family history of ischemic heart disease. History of prior tobacco use, diabetes, and hyperc holesterolemia presents with palpitations. TECHNIQUE: After the intravenous administration of 9.7 mCi Tc 99m Sestamibi - Rest images obtained 4 5 minutes post injection. The patient exercised using a POONAM protocol and 1 minute prior to peak e xercise was injected with 24.7 mCi Tc 99m Sestamibi - Stress images obtained 15 minutes post injectio n. FINDINGS: Targeted heart rate was achieved during performance of the study. Review of stress and rest SPECT johnson ges demonstrates no distinct perfusion abnormality. Gated analysis shows normal wall motion with an estimated left ventricular ejection fraction of 70 %. IMPRESSION: No scintigraphic evidence for reversible ischemia
== END | disposition home or self-care (01) ==
LOC: RADNMMAIN 08:22
PROVIDERS: ATTEND Family Medicine
DX: E78.00 Pure hypercholesterolemia, unspecified (principal); R00.2 Palpitations; Z82.49 Family history of ischemic heart disease and other diseases of the circulatory system; Z87.891 Personal history of nicotine dependence
CPT/HCPCS: 93017; 78452; A9500

== ENCOUNTER 2022-07-22 08:51 | Day surgery (SDC) | payer BC ==
[2022-07-17 09:32] VITALS: BMI 26.3
[~2022-07-22 08:51] MED LIST changes: +LACTATED RINGERS 1,000 ML IV SCH; +LIDOCAINE 1% (10MG/ML) FOR IV START INTRADERMA PRN; -SODIUM CHLORIDE 0.9% 500 ML 500 ML in EMPTY BAG 1 BAG IV PRN; -ZOLEDRONIC ACID 5 MG in SODIUM CHLORIDE 0.9% 100 ML IV NR
[2022-07-22] MEDS ORDERED: LACTATED RINGERS 1,000 ML IV ONE (09:15)
[2022-07-22 09:25] LABS: Glucose,Whole Blood 135 mg/dL (70-110)
[2022-07-22 09:27] VITALS: TEMP 97.2
[2022-07-22] MEDS ORDERED: PROPOFOL 10 MG/ML 20 ML VIAL IV ONE (09:47)
[2022-07-22] MEDS ORDERED: LIDOCAINE 2% INJ 20 MG/ML (2 ML VIAL) ONE (09:47)
--- NOTE | 2022-07-22 09:56 | P.PCN ---
Date of Procedure: 07/22/22 Procedure(s) Performed: BRIEF HISTORY: Patient is a 62-year-old, pleasant, white female scheduled for an upper endoscopy as part of evaluation of long-standing history of GERD. Lately has been having severe epigastric discomfort for the last few weeks. Presently on omeprazole 40 mg daily with some improvement in his symptoms.. PROCEDURE PERFORMED: Esophagogastroduodenoscopy with biopsy. PREOPERATIVE DIAGNOSIS: Long-standing history of GERD and severe epigastric pain of several months duration. IV sedation per anesthesia. PROCEDURE: After informed consent was obtained, the patient was brought into the endoscopy unit. IV sedation was administered by Anesthesia under continuous monitoring. Initially the Olympus GIF-140 video endoscope was inserted into the mouth. Esophagus intubated without any difficulty. It was gradually advanced into the stomach and duodenum and carefully examined. The bulb and the second part of the duodenum appeared normal. Biopsies were done from the duodenum to rule out celiac disease. The scope at this time was withdrawn to the stomach, adequately insufflated with air, and upon careful examination, mucosa of the antrum, had scattered areas of erythema and biopsies were done from this area. Mucosa of the body, cardia and the fundus appeared normal. The scope was then withdrawn into the esophagus. The GE junction was located at 39 cm from the incisors. The esophagus appeared normal. There were no erosions or ulcerations seen, biopsies were done from the distal esophagus and the patient tolerated the procedure well. IMPRESSION: 1. Minimal antral gastritis. 2. No evidence of esophagitis or Victoria's esophagus. RECOMMENDATIONS: The findings of this examination were discussed with the patient as well as a family. She was advised to follow with the biopsy results. She will continue with omeprazole 40 mg daily and follow antireflux measures. She'll be seen in office in 3-4 months.
[2022-07-22 10:29] VITALS: BP 117/71; PULSE 61; RESP 16
== END 2022-07-22 11:00 | disposition home or self-care (01) ==
LOC: ORWHC2ENDO 08:51
PROVIDERS: ATTEND Internal Medicine Gastroenterology
DX: K21.00 Gastro-esophageal reflux disease with esophagitis, without bleeding (principal); K22.70 Barrett's esophagus without dysplasia; K29.50 Unspecified chronic gastritis without bleeding; K31.9 Disease of stomach and duodenum, unspecified; I10 Essential (primary) hypertension; E78.5 Hyperlipidemia, unspecified; E03.9 Hypothyroidism, unspecified; E11.9 Type 2 diabetes mellitus without complications; E05.00 Thyrotoxicosis with diffuse goiter without thyrotoxic crisis or storm; Z88.5 Allergy status to narcotic agent; Z90.710 Acquired absence of both cervix and uterus; Z90.89 Acquired absence of other organs; Z98.890 Other specified postprocedural states; Z79.82 Long term (current) use of aspirin; Z79.890 Hormone replacement therapy; Z79.84 Long term (current) use of oral hypoglycemic drugs; Z79.899 Other long term (current) drug therapy
CPT/HCPCS: 88305; 43239; J2704; J2001

== ENCOUNTER 2022-09-16 11:35 | Day surgery (SDC) | payer BC ==
[~2022-09-16 11:35] MED LIST changes: +DEXAMETHASONE SOD PHOSPHATE 4 MG/ML 1 ML VIAL IV ONE; +HYDROmorphone 0.5 MG/0.5 ML SYRINGE IVP PRN; +MIDAZOLAM 2 MG/2 ML VIAL IV PRN; +fentaNYL (PF) 50 MCG/ML 2 ML AMP IVP PRN
[2022-09-16] MEDS: ONDANSETRON 4 MG/2 ML VIAL IVP ONE ×2 (13:22→16:34)
[2022-09-16 13:31] LABS: Glucose,Whole Blood 110 mg/dL (70-110)
[2022-09-16] MEDS ORDERED: fentaNYL (PF) 50 MCG/1 ML VIAL IVP ONE (13:33)
[2022-09-16] MEDS ORDERED: MIDAZOLAM 2 MG/2 ML VIAL IVP ONE (13:33)
[2022-09-16] MEDS ORDERED: ROCURONIUM 10 MG/ML (5 ML VIAL) IV ONE (14:11)
[2022-09-16] MEDS ORDERED: PROPOFOL 10 MG/ML 20 ML VIAL IV ONE (14:11)
[2022-09-16] MEDS ORDERED: ROPIVACAINE 5 MG/ML 30 ML VIAL ONE (14:11)
[2022-09-16] MEDS ORDERED: SODIUM CHLORIDE 0.9% (PF) 10 ML VIAL ONE (14:11)
[2022-09-16] MEDS ORDERED: fentaNYL (PF) 50 MCG/ML 2 ML AMP ONE (14:11)
[2022-09-16] MEDS ORDERED: LIDOCAINE 2% INJ 20 MG/ML (2 ML VIAL) ONE (14:11)
[2022-09-16] MEDS ORDERED: GLYCOPYRROLATE 0.2 MG/ML 2 ML VIAL ONE (14:11)
[2022-09-16] MEDS ORDERED: ePHEDrine 50 MG/ML 1 ML VIAL ONE (14:11)
[2022-09-16] MEDS ORDERED: NEOSTIGMINE 1 MG/ML 10 ML VIAL ONE (14:11)
--- NOTE | 2022-09-16 14:11 | P.ANPRN ---
Procedure Note - Anesthesia - Nerve Block Performed Left iPack Single Time Out Performed: Yes ([id number]) Date of Procedure: 09/16/22 Procedure Start Time: 13:33 Procedure Stop Time: 13:38 Location of Patient: PreOp Indication: Acute Post-Operative Pain, Requested by Surgeon Specifically requested for management of pain by DrSkip: Qamar Castellanos Sedation Type: Sedate with meaningful contact maintained Preparation: Sterile Prep Position: Supine Catheter: None Needle Types: Pajunk Needle Gauge: 21 Ultrasound used to visualize needle placement: Yes Ultrasound used to observe medication spread: Yes Injectate: 0.5% Ropivacaine (see comment for volume) (15cc + 10cc nacl pf) Blood Aspirated: No Pain Paresthesia on Injection Noted: No Resistance on Injection: Normal Image Stored and Saved: Yes Events: Uneventful and Well Tolerated
--- NOTE | 2022-09-16 14:12 | P.ANPRN ---
Procedure Note - Anesthesia - Nerve Block Performed Left Adductor Canal Single Time Out Performed: Yes ([id number]) Date of Procedure: 09/16/22 Procedure Start Time: 13:40 Procedure Stop Time: 13:45 Location of Patient: PreOp Indication: Acute Post-Operative Pain, Requested by Surgeon Specifically requested for management of pain by DrSkip: Qamar Castellanos Sedation Type: Sedate with meaningful contact maintained Preparation: Sterile Prep Position: Supine Catheter: None Needle Types: Pajunk Needle Gauge: 21 Ultrasound used to visualize needle placement: Yes Ultrasound used to observe medication spread: Yes Injectate: 0.5% Ropivacaine (see comment for volume) (15cc +10cc nacl pf) Blood Aspirated: No Pain Paresthesia on Injection Noted: No Resistance on Injection: Normal Image Stored and Saved: Yes Events: Uneventful and Well Tolerated
[2022-09-16] MEDS ORDERED: ceFAZolin 1,000 MG in SODIUM CHLORIDE 0.9% 1,000 ML IRRIGATION ONE (15:11)
--- NOTE | 2022-09-16 16:24 | FL ---
EXAMINATION TYPE: FL guidance operating room, XR ankle limited LT DATE OF EXAM: 09/16/2022 COMPARISON: NONE HISTORY: 62-year-old female postop left ankle FINDINGS: Intraoperative fluoroscopy during lateral plate and screw fixation distal fibula. Anterior screw fixa tion for the posterior malleolus, and additional plate and screw fixation of the medial malleolus. FLUOROSCOPY Fluoroscopy time of 1 minute 46 seconds was used during left-sided trimalleolar ankle fixations. 3 i mage/s document/s the procedure. Total 0.8745 DAP. IMPRESSION: Intraoperative fluoroscopy as above.
[2022-09-16 16:27] VITALS: TEMP 97.8
[2022-09-16 16:35] VITALS: RESP 16
[2022-09-16] MEDS ORDERED: SODIUM CHLORIDE 0.9% 1,000 ML IV ONE (16:44)
[2022-09-16] MEDS: MEPERIDINE 50 MG/ML SYRINGE IVP ONE ×2 (17:07→17:17)
[2022-09-16 17:49] VITALS: BP 125/77; PULSE 68
--- NOTE | 2022-09-17 08:38 | OP ---
OPERATIVE REPORT DATE OF SERVICE : 09/16/2022 PREOPERATIVE DIAGNOSIS: Displaced trimalleolar ankle fracture, left. POSTOPERATIVE DIAGNOSIS: Displaced trimalleolar ankle fracture, left. PROCEDURES PERFORMED: Open reduction with internal fixation of left trimalleolar ankle fracture. ANESTHESIA: General with preoperative nerve block. HEMOSTASIS: Left thigh tourniquet at 250 mmHg. ESTIMATED BLOOD LOSS: Minimal. MATERIALS: One Arthrex precontoured lateral malleolar plate and Arthrex 4.0 mm cannulated screws. INJECTABLES: None. SPECIMENS: None. COMPLICATIONS: None. DESCRIPTION OF PROCEDURE: Prior to the patient being brought to the operative room, Anesthesia administered a nerve block on the left lower extremity. Then, the patient was brought into the operative room and placed on the table in supine position. Time-out was taken to confirm correct patient identifiers, correct laterality of surgery, and correct procedure. When all staff in the room were in agreement with the time-out, the patient was induced and placed under general anesthesia. A well-padded tourniquet was placed on the left thigh and a bump underneath the left hip to internally rotate the left leg. The left leg was prepped and draped in usual manner. The leg was exsanguinated and the tourniquet was inflated to 250 mmHg. Attention was directed over the lateral malleolus where the incision was made at the midline over the fracture site. It was deepened down to the subcutaneous tissue careful to identify, avoid, and retract any neurovascular structures and cauterize any bleeding vessels. Dissection was continued down to the lateral malleolus where the soft tissues dissected anteriorly and posteriorly to expose the fracture. Rongeur and curette were used to remove the soft tissue and hematoma interposing between the fracture fragments. Once completed, the area was thoroughly irrigated with antibiotic saline. Bone reduction forceps were used to rotate and bring the fibula back out to length and reduce the fracture. Fluoroscopy confirmed the proper reduction of the fracture both on AP and lateral views. Interfragmentary screw was then placed anterior-posterior perpendicular to the fracture line for interfragmentary compression. Then, Arthrex precontoured lateral malleolar plate was positioned and temporarily fixated. Fluoroscopy was used to confirm the proper position of the plate. Once properly positioned, 3.5 mm locking screws were placed proximally through the plate and then distal locking and nonlocking screws were placed in the lateral malleolus. All drilling screws were placed under direct fluoroscopic visualization so as not to enter the lateral gutter. Fluoroscopic imaging confirmed proper placement of hardware and anatomic reduction of the fracture. Then, attention was directed to the medial malleolus where an incision was made directly over the fracture, it was deepened down to the subcutaneous tissue, careful to identify and avoid retracting neurovascular structures and cauterize any bleeding vessels. Dissection was then carried down to the fracture. Once the fracture was visualized, it was noted that there was soft tissue interposed between the fracture fragments, so this was all sharply removed and hematoma evacuated so that the fracture could be reduced. The wound was then irrigated with antibiotic saline. Initially, guidewires were placed percutaneously at the tip of the medial malleolus and placed across the fracture line screws. The wires appeared to be in the proper position in the fluoroscopy and then the screws were placed. There was good bite and then at that point, the ankle was stressed because of syndesmosis and then both screws lost purchase in the medial malleolus, so both screws were removed and then decision was made to use a medial malleolar hook plate, so the hook plate was placed at the distal aspect of the medial malleolus and then positioned on the medial tibia under fluoroscopy until properly positioned and then the hooks were impacted into the tip of the medial malleolus. A cannulated screw was then placed to the hooks of the medial malleolus across the fracture line to provide compression. An additional nonlocking screw was placed to the compression slot of the plate to further compress the fracture line and then a locking screw was placed at the most proximal hole through the plate. Final fluoroscopic imaging showed proper placement of the plate with reduction of the fracture and anatomic symmetry of the ankle joint. Fluoroscopy had also showed a posterior malleolar fracture with a large fragment, however, was stable and in proper alignment. Therefore, the decision was made to fixate the fracture with an anterior-posterior screw. The guidewire was placed under direct fluoroscopic visualization of the lateral distal tibia. It was then advanced toward the fracture with slight downward angulation awaiting ankle joint. Fluoroscopy showed capture of the fragment both on AP and lateral views. Then, a small stab incision was made through the skin and bluntly dissected down to bone and then the soft tissues were protected for the overdrill, which was done right to the fracture line and then a cannulated screw was inserted across the guidewire and advanced until the posterior fragment was captured and the head engaged the tibia and compressed the fracture. Fluoroscopic imaging showed anatomic reduction of the fracture and proper placement of the final screw. Once completed, all wounds were thoroughly irrigated with antibiotic saline. Deep closure of both incisions was done with 0 Vicryl, subcutaneous closure of both incisions done with 3-0 Monocryl and skin closure done with flor on all incisions. An Arthrex jumpstart dressing placed over all the incisions and then a bulky dry dressing was applied to the left ankle. The tourniquet was released and capillary refill returned to all digits on the left foot. The patient was then placed in a well-padded, well- molded plaster posterior mold/sugar-tong splint. The ankle was held in neutral position until the splint was dried. The anesthesia was reversed and the patient was taken to recovery with vital signs stable. MMODL / IJN: [id number] /
== END 2022-09-16 18:28 | disposition home or self-care (01) ==
LOC: OR 11:35
PROVIDERS: ATTEND Podiatrist
DX: S82.852A Displaced trimalleolar fracture of left lower leg, initial encounter for closed fracture (principal); G89.18 Other acute postprocedural pain; K21.9 Gastro-esophageal reflux disease without esophagitis; E11.9 Type 2 diabetes mellitus without complications; E03.9 Hypothyroidism, unspecified; E78.5 Hyperlipidemia, unspecified; K91.0 Vomiting following gastrointestinal surgery; F41.8 Other specified anxiety disorders; Z87.891 Personal history of nicotine dependence; Z79.84 Long term (current) use of oral hypoglycemic drugs; Z79.890 Hormone replacement therapy; Z79.899 Other long term (current) drug therapy; Z88.5 Allergy status to narcotic agent
CPT/HCPCS: 93005; 73600; 27822; 64447; 64999; J2250; J1100; J2175; J0690 ×2; J2405; J3010; 64445; 76942

== ENCOUNTER → 2023-01-14 | Outpatient (CLI) | payer BC ==
--- NOTE | 2023-01-15 14:43 | MM ---
Reason for Exam: Screening (asymptomatic). Last screening mammogram was performed 12 month(s) ago. Patient History: Menarche at age 14. First Full-Term at age 27. Hysterectomy at age 43. Postmenopausal. Hormonal Contraceptives for 3 months. 2007, Benign Excisional Biopsy on the right side. 10/17/2004, Benign Excisional Biopsy on the right side. Bilateral Reduction. 09/15/2006, Benign Excisional Biopsy on the right side. Maternal cousin had breast cancer, age 40. Risk Values: Pamela 5 year model risk: 2.4%. NCI Lifetime model risk: 11.9%. Prior Study Comparison: 01/02/2020 Bilateral Screening Mammogram, [facility]. 01/08/2021 Bilateral Screening Mammogram, [facility]. 01/12/2022 Bilateral MG 3D screening mammo w/cad, [facility]. Tissue Density: There are scattered fibroglandular densities. Findings: Analyzed By CAD. Pattern appears symmetrical and stable. No significant interval change is evident. No suspicious groups of microcalcifications, spiculated or lobular masses, architectural distortion or other secondary signs of malignancy are mammographically apparent. Overall Assessment: Benign, BI-RAD 2 Management: Screening Mammogram of both breasts in 1 year. A negative mammogram report should not preclude additional follow up of suspicious palpable abnormalities. Patient should continue monthly self breast exam. A clinical breast exam by your physician is recommended on an annual basis and results should be correlated with mammographic findings. Electronically signed and approved by: Dheeraj Greene D.O. Radiologis
== END | disposition home or self-care (01) ==
LOC: RADMAMWWP 08:01
PROVIDERS: ATTEND Surgery
DX: Z12.31 Encounter for screening mammogram for malignant neoplasm of breast (principal); Z78.0 Asymptomatic menopausal state; Z80.3 Family history of malignant neoplasm of breast
CPT/HCPCS: 77063; 77067

== ENCOUNTER → 2023-01-21 | Outpatient (CLI) | payer BC ==
[2023-01-21 08:59] VITALS: BP 124/78; PULSE 59; RESP 18; TEMP 98.8
--- NOTE | 2023-01-21 09:03 | P.PN ---
Subjective Progress Note Date: 01/21/23 Principal diagnosis: fibrocystic breast disease fibrocystic breast changes breast pain fibrocystic breast changes Mohan is a 60-year-old white female comes for repeat breast evaluation. She had a bilateral mammogram 11/21/2018 which revealed a 7 mm equal density mass in the subareolar position of the right breast. Additional studies of the right breast including an ultrasound was performed at that time this is felt to be negative the follow-up diagnostic mammogram of the right breast in 6 months time was recommended. The patient has had a follow-up diagnostic mammogram on . This was felt to be scattered fibroglandular densities. Benign BIRADS 2 and return to normal screening for both breast which will be in November 2019. She had a mammogram was done on 01-02-20 and was benign BIRADS 1. The patient's most recent mammogram was on 7720 this was negative and routine screening was recommended. The patient has asymmetry of the breasts secondary to prior procedures. The left side is larger than the right. In the last year she was seen by plastic surgery to consider a reduction mammoplasty on the left however he she was told that insurance would not cover this. At this time she is complaining of bilateral breast discomfort. She wears a size 36D and is complaining of back pain and shoulder notching. Additionally she has bilateral breast pain throughout the breast. She believes this is related to hormone changes. She has not taken any hormones. She is not complaining of any nipple discharge or skin changes. She cannot feel any specific lumps or masses in her breast. 01-16-22 The patient on underwent a bilateral breast reduction secondary to asymmetry and macromastia. She had been suffering from back pain and bilateral shoulder notching. Since that time she is not complaining of any new lumps masses or nodules of concern in either breast. She had a bilateral mammogram performed on which was felt to be benign BIRADS 1. She now is a 38C. She is down from a double D on the left and a D on the right. Her back pain has improved and the shoulder notching is improved. 01-21-23 Patient had a bilateral mammogram on 01-14-23 BIRAD 2. She is a 62 year old female is not complaining of any new lumps masses or nodules of concern in either breast. Is not complaining of back pain or shoulder notching like she had prior to the reduction. She did not go to [facility] regarding constipation and rectal pain, but is in consultation with them. She on September 10 fractured her left ankle. 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 Family history: Paternal aunt: Breast cancer at 75 Maternal cousin: Breast cancer at 40 Hormonal History: menarche: 14 breast fed: no, first child born at 27 BCP: 1 year hormones: none Past medical history: 1. Hypothyroid 2. Type 2 diabetes 3. GERD 4. Irritable bowel syndrome 5. rectal pain following at [facility] Past surgical history: 1. Total thyroidectomy 2. Hysterectomy 3. 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 Right breast biopsy 5. Bladder suspension/rectocele. 6. Removal of Monarc sling 7. Placement of monarch sling 8. bilateral breast reductions 9. surgery of her left ankle Social history: Smoke: Negative Alcohol: Occasional Drugs: Negative Review of systems: HEENT: Negative Lungs: Negative Cardiac: Negative GI: Irritable bowel syndrome : Prior bladder suspension Musculoskeletal: Arthritis in knees Integument: As above Psychiatric: Anxiety hematologic: allergies: codeine Objective - Constitutional General appearance: Present: cooperative - EENT Eyes: Present: EOMI ENT: Present: hearing grossly normal - Neck Neck: Present: normal ROM - Respiratory Respiratory: bilateral: CTA - Cardiovascular Rhythm: regular Heart sounds: normal: S1, S2 - Integumentary Integumentary: Present: normal turgor - Musculoskeletal Musculoskeletal: Present: gait normal - Psychiatric Psychiatric: Present: A&O x's 3, appropriate affect, intact judgment & insight - Additional findings Additional findings: Breast Exam: BRA: 36C Inspection: Well-healed scars from bilateral reduction mammoplasty, grade 1 ptosis Palpation: Right breast: Multiple positional exam fibrocystic changes no dominant masses or nodules of concern Right axilla: No adenopathy of concern Left breast: Multiple positional exam fibrocystic changes no dominant masses or nodules of concern Left axilla: No adenopathy of concern Assessment and Plan Assessment: Impression: 1. Hypothyroid 2. Type 2 diabetes 3. GERD 4. Irritable bowel syndrome 5. rectal pain following at [facility] 6. Fibrocystic breast changes, nothing at this time which would warn interventional biopsy 7. bilateral mammogram on 01-14-23 BIRAD 2 Plan: Bilateral mammogram in 1 year with physician exam at that time CC: Dr. Johnson
== END ==
LOC: WWCWWP 08:45
PROVIDERS: ATTEND Surgery
DX: Z71.2 Person consulting for explanation of examination or test findings (principal); N60.11 Diffuse cystic mastopathy of right breast; N60.12 Diffuse cystic mastopathy of left breast; N63.41 Unspecified lump in right breast, subareolar; N64.4 Mastodynia; N62 Hypertrophy of breast; K58.9 Irritable bowel syndrome, unspecified; K21.9 Gastro-esophageal reflux disease without esophagitis; N64.89 Other specified disorders of breast; E11.9 Type 2 diabetes mellitus without complications; E03.9 Hypothyroidism, unspecified; Z80.3 Family history of malignant neoplasm of breast; Z88.5 Allergy status to narcotic agent; Z79.890 Hormone replacement therapy

== ENCOUNTER → 2024-01-17 | Outpatient (CLI) | payer BC ==
--- NOTE | 2024-01-18 17:00 | MM ---
Reason for Exam: Screening (asymptomatic). Last screening mammogram was performed 12 month(s) ago. Patient History: Menarche at age 14. First Full-Term at age 27. Hysterectomy at age 43. Postmenopausal. Hormonal Contraceptives for 3 months. 2007, Benign Excisional Biopsy on the right side. 10/17/2004, Benign Excisional Biopsy on the right side. Bilateral Reduction. 09/15/2006, Benign Excisional Biopsy on the right side. Maternal cousin had breast cancer, age 40. Risk Values: Pamela 5 year model risk: 2.5%. NCI Lifetime model risk: 11.6%. Prior Study Comparison: 01/08/2021 Bilateral Screening Mammogram, [facility]. 01/12/2022 Bilateral MG 3D screening mammo w/cad, [facility]. 01/14/2023 Bilateral MG 3D screening mammo w/cad, [facility]. Tissue Density: There are scattered areas of fibroglandular density. Findings: Analyzed By CAD. The pattern is symmetrical. No significant interval change is evident. No suspicious groups of microcalcifications, spiculated or lobular masses, architectural distortion or other secondary signs of malignancy are mammographically apparent. Overall Assessment: Benign, BI-RAD 2 Management: Screening Mammogram of both breasts in 1 year. A negative mammogram report should not preclude additional follow up of suspicious palpable abnormalities. Patient should continue monthly self breast exam. A clinical breast exam by your physician is recommended on an annual basis and results should be correlated with mammographic findings. Note on Pamela scores and lifetime risk: 1. A Pamela score greater than 3% is considered moderate risk. If this is the case, consider specialist referral to assess eligibility for a risk reducing agent. 2. If overall lifetime risk for the development of breast cancer is 20% or higher, the patient may qualify for future screening with alternating mammogram and breast MRI. Electronically signed and approved by: Dheeraj Greene D.O. Radiologis
== END | disposition home or self-care (01) ==
LOC: RADMAMWWP 09:36
PROVIDERS: ATTEND Surgery
DX: Z12.31 Encounter for screening mammogram for malignant neoplasm of breast (principal); Z80.3 Family history of malignant neoplasm of breast; Z78.0 Asymptomatic menopausal state
CPT/HCPCS: 77063; 77067

== ENCOUNTER → 2024-01-21 | Outpatient (CLI) | payer BC ==
[2024-01-21 11:25] VITALS: BP 112/75; PULSE 78; RESP 16; TEMP 98.1
--- NOTE | 2024-01-21 11:39 | P.PN ---
Subjective Progress Note Date: 01/21/24 Principal diagnosis: fibrocystic breast disease 01-21-24 Principal diagnosis: fibrocystic breast disease Mohan is a 63 year old with a complaint of fibrocystic breast disease. She had a bilateral mammogram personally interpreted on 01-17-24 [place] [id number] underwent a bilateral breast reduction secondary to asymmetry and macromastia. She had been suffering from back pain and bilateral shoulder notching. Since that time she is not complaining of any new lumps masses or nodules of concern in either breast. She now is a 38C. She is down from a double D on the left and a D on the right. Her back pain has improved and the shoulder notching is improved. She is not complaining of any new lumps, masses , or nodules in her breast at this time. 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 Family history: Paternal aunt: Breast cancer at 75 Maternal cousin: Breast cancer at 40 Hormonal History: menarche: 14 breast fed: no, first child born at 27 BCP: 1 year hormones: none Past medical history: 1. Hypothyroid 2. Type 2 diabetes 3. GERD 4. Irritable bowel syndrome 5. rectal pain following at [facility] Past surgical history: 1. Total thyroidectomy 2. Hysterectomy 3. 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 Right breast biopsy 5. Bladder suspension/rectocele. 6. Removal of Monarc sling 7. Placement of monarch sling 8. bilateral breast reductions 9. surgery of her left ankle Social history: Smoke: Negative Alcohol: Occasional Drugs: Negative Review of systems: HEENT: Negative Lungs: Negative Cardiac: Negative GI: Irritable bowel syndrome : Prior bladder suspension Musculoskeletal: Arthritis in knees Integument: As above Psychiatric: Anxiety hematologic: allergies: codeine Objective - Vital Signs Vital signs: Vital Signs Temp 98.1 F 01/21/24 11:22 Pulse 78 01/21/24 11:22 Resp 16 01/21/24 11:22 BP 112/75 01/21/24 11:22 Pulse Ox 98 01/21/24 11:22 FiO2 Intake & Output 01/20/24 01/21/24 01/21/24 18:59 06:59 18:59 Weight 78.471 kg - Constitutional General appearance: Present: cooperative - EENT Eyes: Present: EOMI ENT: Present: hearing grossly normal - Neck Neck: Present: normal ROM - Respiratory Respiratory: bilateral: CTA - Cardiovascular Heart sounds: normal: S1, S2 - Integumentary Integumentary: Present: normal turgor - Musculoskeletal Musculoskeletal: Present: gait normal - Psychiatric Psychiatric: Present: A&O x's 3, appropriate affect, intact judgment & insight - Additional findings Additional findings: Breast Exam: BRA: 36C Inspection: Well-healed scars from bilateral reduction mammoplasty, grade 1 ptosis Palpation: Right breast: Multiple positional exam fibrocystic changes no dominant masses or nodules of concern Right axilla: No adenopathy of concern Left breast: Multiple positional exam fibrocystic changes no dominant masses or nodules of concern Left axilla: No adenopathy of concern Assessment and Plan Assessment: Impression: 1. Hypothyroid 2. Type 2 diabetes 3. GERD 4. Irritable bowel syndrome 5. rectal pain following at [facility] 6. Fibrocystic breast changes, nothing at this time which would warn interven tional biopsy 7. bilateral mammogram on 01-14-23 BIRAD 2 Plan: Bilateral mammogram in 1 year with physician exam at that time patient to follow up sooner any concerns CC: Dr. Johnson
== END ==
LOC: WWCWWP 10:39
PROVIDERS: ATTEND Surgery
DX: N62 Hypertrophy of breast (principal); N60.11 Diffuse cystic mastopathy of right breast; N60.12 Diffuse cystic mastopathy of left breast; M54.9 Dorsalgia, unspecified; E03.9 Hypothyroidism, unspecified; E11.9 Type 2 diabetes mellitus without complications; K21.9 Gastro-esophageal reflux disease without esophagitis; K58.9 Irritable bowel syndrome, unspecified; K62.89 Other specified diseases of anus and rectum; Z80.3 Family history of malignant neoplasm of breast; Z88.5 Allergy status to narcotic agent; Z79.84 Long term (current) use of oral hypoglycemic drugs; Z79.890 Hormone replacement therapy

== ENCOUNTER → 2024-04-14 | Outpatient (CLI) | payer BC ==
[2024-04-14 15:38] LABS: ALT 20 U/L (8-44); AST 19 U/L (13-35); Albumin 4.6 g/dL (3.8-4.9); Albumin/Globulin Ratio 1.92 Ratio (1.60-3.17); Alkaline Phosphatase 89 U/L (41-126); BUN/Creat Ratio 31.43 Ratio (12.00-20.00); Calcium 9.8 mg/dL (8.7-10.3); Carbon Dioxide 26.6 mmol/L (21.6-31.8); Chloride 103 mmol/L (96-109); Chol/HDL Ratio 3.85 Ratio; Globulin 2.4 g/dL (1.6-3.3); Glucose 133 mg/dL (70-110); LDL Cholesterol,Calculated 115.8 mg/dL (0.0-131.0); Potassium 5.1 mmol/L (3.5-5.5); Sodium 140 mmol/L (135-145); T4, Free (Free Thyroxine) 1.31 ng/dL (0.80-1.80); Total Bilirubin 0.4 mg/dL (0.3-1.2)
[2024-04-14 19:12] LABS: Microalbumin Creatinine Ratio <6 mg/g Cr (0-30)
== END | disposition home or self-care (01) ==
LOC: LABWHC1 09:06
PROVIDERS: ATTEND Internal Medicine
CPT/HCPCS: 36415; 80053; 80061; 82043; 82306; 82570; 83036; 84439; 84443

== ENCOUNTER → 2025-01-17 | Outpatient (CLI) | payer BC ==
--- NOTE | 2025-01-17 09:35 | MM ---
Reason for Exam: Screening (asymptomatic). Last screening mammogram was performed 12 month(s) ago. Patient History: Menarche at age 14. First Full-Term at age 27. Hysterectomy at age 43. Postmenopausal. Hormonal Contraceptives for 3 months. 2007, Benign Excisional Biopsy on the right side. 10/17/2004, Benign Excisional Biopsy on the right side. Bilateral Reduction. 09/15/2006, Benign Excisional Biopsy on the right side. Maternal cousin had breast cancer, age 40. Risk Values: Pamela 5 year model risk: 2.6%. NCI Lifetime model risk: 11.3%. Prior Study Comparison: 01/12/2022 Bilateral MG 3D screening mammo w/cad, [facility]. 01/14/2023 Bilateral MG 3D screening mammo w/cad, [facility]. 01/17/2024 Bilateral MG 3D screening mammo w/cad, [facility]. Tissue Density: There are scattered areas of fibroglandular density. Findings: Analyzed By CAD. There is no suspicious group of microcalcifications or new suspicious mass in either breast. Overall Assessment: Negative, BI-RAD 1 Management: Screening Mammogram of both breasts in 1 year. . Patient should continue monthly self-breast exams. A clinical breast exam by your physician is recommended on an annual basis. This exam should not preclude additional follow-up of suspicious palpable abnormalities. Note on Pamela scores and lifetime risk: 1. A Pamela score greater than 3% is considered moderate risk. If this is the case, consider specialist referral to assess eligibility for a risk reducing agent. 2. If overall lifetime risk for the development of breast cancer is 20% or higher, the patient may qualify for future screening with alternating mammogram and breast MRI. [facility], , 01/17/2025 9:32 AM. Electronically signed and approved by: Kingston Marcos M.D. Radiologis
== END | disposition home or self-care (01) ==
LOC: RADMAMWWP 08:34
PROVIDERS: ATTEND Surgery
DX: Z12.31 Encounter for screening mammogram for malignant neoplasm of breast (principal); R92.323 Mammographic fibroglandular density, bilateral breasts; Z78.0 Asymptomatic menopausal state; Z92.0 Personal history of contraception; Z80.3 Family history of malignant neoplasm of breast
CPT/HCPCS: 77063; 77067

== ENCOUNTER → 2025-01-25 | Outpatient (CLI) | payer BC ==
[2025-01-25 10:17] VITALS: BP 122/76; PULSE 66; RESP 16; TEMP 98.5
--- NOTE | 2025-01-25 10:31 | P.PN ---
Subjective Progress Note Date: 01/25/25 Principal diagnosis: fibrocystic breast disease 01/25/25 Principal diagnosis: fibrocystic breast disease Mohan is a 64 year old with a complaint of fibrocystic breast disease. She had a bilateral mammogram personally interpreted on 01-17-25 which was [place] 1[place] [id number] underwent a bilateral breast reduction secondary to asymmetry and macromastia. She had been suffering from back pain and bilateral shoulder notching. Since that time she is not complaining of any new lumps masses or nodules of concern in either breast. She now is a 38C. She is down from a double D on the left and a D on the right. Her back pain has improved and the shoulder notching is improved. She is not complaining of any new lumps, masses , or nodules in her breast at this time. 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 Family history: Paternal aunt: Breast cancer at 75 Maternal cousin: Breast cancer at 40 Hormonal History: menarche: 14 breast fed: no, first child born at 27 BCP: 1 year hormones: none Past medical history: 1. Hypothyroid 2. Type 2 diabetes 3. GERD 4. Irritable bowel syndrome 5. rectal pain following at [facility] Past surgical history: 1. Total thyroidectomy 2. Hysterectomy 3. 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 Right breast biopsy 5. Bladder suspension/rectocele. 6. Removal of Monarc sling 7. Placement of monarch sling 8. bilateral breast reductions 9. surgery of her left ankle Social history: Smoke: Negative Alcohol: Occasional Drugs: Negative Review of systems: HEENT: Negative Lungs: Negative Cardiac: Negative GI: Irritable bowel syndrome : Prior bladder suspension Musculoskeletal: Arthritis in knees Integument: As above Psychiatric: Anxiety hematologic: allergies: codeine Objective - Vital Signs Vital signs: Vital Signs Temp 98.5 F 01/25/25 10:15 Pulse 66 01/25/25 10:15 Resp 16 01/25/25 10:15 BP 122/76 01/25/25 10:15 Pulse Ox 98 01/25/25 10:15 FiO2 Intake & Output 01/24/25 01/25/25 01/25/25 18:59 06:59 18:59 Weight 73.482 kg - Constitutional General appearance: Present: cooperative - EENT Eyes: Present: EOMI ENT: Present: hearing grossly normal - Neck Neck: Present: normal ROM - Respiratory Respiratory: bilateral: CTA - Cardiovascular Rhythm: regular Heart sounds: normal: S1, S2 - Integumentary Integumentary: Present: normal turgor - Musculoskeletal Musculoskeletal: Present: gait normal - Psychiatric Psychiatric: Present: A&O x's 3, appropriate affect, intact judgment & insight - Additional findings Additional findings: Breast Exam: BRA: 36C Inspection: Well-healed scars from bilateral reduction mammoplasty, grade 1 ptosis Palpation: Right breast: Multiple positional exam fibrocystic changes no dominant masses or nodules of concern Right axilla: No adenopathy of concern Left breast: Multiple positional exam fibrocystic changes no dominant masses or nodules of concern Left axilla: No adenopathy of concern Assessment and Plan Assessment: Impression: 1. Hypothyroid 2. Type 2 diabetes 3. GERD 4. Irritable bowel syndrome 5. rectal pain following at [facility] 6. Fibrocystic breast changes, nothing at this time which would warn interventional biopsy 7. bilateral mammogram on 01-14-23 BIRAD 2 Plan: Bilateral mammogram in 1 year with physician exam at that time patient to follow up sooner any concerns CC: Dr. Johnson
== END ==
LOC: WWCWWP 09:28
PROVIDERS: ATTEND Surgery
DX: N60.19 Diffuse cystic mastopathy of unspecified breast (principal); E03.9 Hypothyroidism, unspecified; E11.9 Type 2 diabetes mellitus without complications; K21.9 Gastro-esophageal reflux disease without esophagitis; K58.9 Irritable bowel syndrome, unspecified; K62.89 Other specified diseases of anus and rectum; Z88.5 Allergy status to narcotic agent